=== PATIENT | female | born 1990 | race Caucasian/White ===

== ENCOUNTER 2019-06-21 21:56 | Inpatient (IN) | payer MEDICAID ==
[~2019-06-21] VITALS: Ht 157.5 cm; Wt 85.3 kg
[2019-06-21] MEDS ORDERED: ZOLPIDEM TARTRATE 10 MG TABLET PO PRN (22:15)
[2019-06-21] MEDS ORDERED: HALOPERIDOL 5 MG TABLET PO PRN (22:15)
[2019-06-22 00:15] VITALS: BP 124/78
[2019-06-22 08:23] VITALS: BP 124/67
[2019-06-22] MEDS: LevETIRAcetam 250 MG TABLET PO SCH ×2 (09:00→16:07)
[2019-06-22] MEDS ORDERED: IBUPROFEN 400 MG TABLET PO PRN (10:30)
[2019-06-22] MEDS ORDERED: ARIPiprazole 10 MG TABLET PO SCH (11:45)
[2019-06-22 16:04] VITALS: BP 100/60
[2019-06-22] MEDS: BENZTROPINE MESYLATE 1 MG TABLET PO SCH (16:42)
[2019-06-22] MEDS ORDERED: *PATIENT'S OWN MED [ENTER DRUG, DOSE, FREQUENCY IN COMMENTS] CLINICAL ONE ×2 (21:30→22:15)
[2019-06-23 04:20] VITALS: BP 101/68
[2019-06-23] MEDS ORDERED: LEVE500S9 PO (06:05)
[2019-06-23] MEDS ORDERED: BENZ1TAB10 PO (06:05)
[2019-06-23 08:18] VITALS: BP 118/67
[2019-06-23] MEDS: BENZTROPINE MESYLATE 1 MG TABLET PO SCH ×2 (08:29→17:24)
[2019-06-23] MEDS: LevETIRAcetam 250 MG TABLET PO SCH ×2 (08:29→17:24)
[2019-06-23] MEDS: LORazepam 1 MG TABLET PO PRN (08:44)
[2019-06-23] MEDS ORDERED: RUFINAMIDE 400 MG PO SCH ×2 (09:00→17:00)
[2019-06-23] MEDS: RUFINAMIDE 400 MG PO SCH (14:01)
[2019-06-23 16:18] VITALS: BP_SYST 106; BP_SYST 122; BP_DIAS 60; BP_DIAS 67
[2019-06-23] MEDS ORDERED: ARIPiprazole 10 MG TABLET PO SCH (21:00)
[2019-06-24 03:38] VITALS: BP 112/67
[2019-06-24] MEDS: LevETIRAcetam 250 MG TABLET PO SCH (08:17)
[2019-06-24] MEDS: RUFINAMIDE 400 MG PO SCH (08:17)
[2019-06-24] MEDS: BENZTROPINE MESYLATE 1 MG TABLET PO SCH (08:17)
[2019-06-24] MEDS: LORazepam 1 MG TABLET PO PRN (08:17)
[2019-06-24 08:25] LABS: APPEARANCE,URINE CLEAR (CLEAR); BILIRUBIN,URINE NEGATIVE (NEGATIVE); GLUCOSE, URINE (UA) NEGATIVE (NEGATIVE); KETONES,URINE NEGATIVE (NEGATIVE); LEUKOCYTE ESTERASE ,URINE TRACE (NEGATIVE); NITRATE,URINE NEGATIVE (NEGATIVE); OCCULT BLOOD,URINE NEGATIVE (NEGATIVE); PH,URINE 5.5 (5.0-8.0); PROTEIN,URINE NEGATIVE (NEGATIVE); UROBILINOGEN,URINE 0.2 mg/dL (<=1.0)
[2019-06-24 08:32] VITALS: BP 114/61
[2019-06-24 08:32] LABS: AMPHET/METH SCREEN,URINE NEGATIVE (NEGATIVE); BARBITURATE SCREEN, URINE NEGATIVE (NEGATIVE); BENZODIAZEPINES SCREEN,URINE NEGATIVE (NEGATIVE); CANNABINOID SCREEN,URINE NEGATIVE (NEGATIVE); COCAINE SCREEN,URINE NEGATIVE (NEGATIVE); METHADONE SCREEN, URINE NEGATIVE (NEGATIVE); OPIATE SCREEN,URINE NEGATIVE (NEGATIVE)
[2019-06-24 08:35] LABS: PHENCYCLIDINE SCREEN,URINE NEGATIVE (NEGATIVE)
[2019-06-24] MEDS ORDERED: BENZ1TAB10 PO (09:16)
[2019-06-24] MEDS ORDERED: LEVE250T55 PO (09:16)
[2019-06-24] MEDS ORDERED: ARIP10TA8 PO (09:16)
[2019-06-24 09:48] LABS: BACTERIA,URINE None Seen /HPF (None Seen); RBC,URINE None Seen /HPF (0-2); SQUAMOUS EPITHELIAL CELL,UR Few /LPF (None Seen); WBC,URINE 0-2 /HPF (0-5)
== END 2019-06-24 13:25 | disposition home or self-care (01) | DRG 753 ==
LOC: B3A 22:30
PROVIDERS: ADMIT Psychiatry & Neurology Psychiatry; ATTEND Psychiatry & Neurology Psychiatry
DX: F31.9 Bipolar disorder, unspecified (principal); G40.909 Epilepsy, unspecified, not intractable, without status epilepticus; R45.851 Suicidal ideations; K21.9 Gastro-esophageal reflux disease without esophagitis
CPT/HCPCS: 80307; 84439